=== PATIENT | male | born 1945 | race Caucasian/White ===

== ENCOUNTER 2016-07-04 11:24 | Inpatient (IN) | payer MEDICARE, OTHER ==
[~2016-07-04] VITALS: Ht 172.7 cm; Wt 76.6 kg
[~2016-07-04 11:24] MED LIST: COMPAZINE DPS5 MG PO; DECADRON-DPS4 MG PO; KEFLEX-DPS500 MG PO; LEVEMIR100 UNIT/1 PO; MIRALAX PACKET17 GM PO; NORMAL SALINE FL5 ML IV; OXY IR DPS5 MG PO; OXY-CONTIN10 MG PO; PEPCID DPS20 MG PO; SURFAK DPS240 MG PO; ZYLOPRIM-DPS300 MG PO
--- NOTE | 2016-07-08 09:47 | CO ---
ADMIT: 07/04/2016 RM/LOC: 423 [facility] MR#: [id number] 2620 [facility] [address] [place], [place] [address] GWENDOLYN NAVARRO [address] [place] [address] Consultation SEX: M AGE: 70 : 1945 DATE OF CONSULTATION: 07/04/2016 ATTENDING PHYSICIAN: Forest Wisdom CONSULTING PHYSICIAN: Corrie Cerda MD REASON FOR ONCOLOGY CONSULTATION: 1. Small-cell lung cancer. 2. Anemia secondary to chemotherapy. HISTORY OF PRESENT ILLNESS: Mr. Navarro is a 70-year-old pleasant gentleman with recent diagnosis of small-cell lung cancer, on chemotherapy. The patient is of my colleague Dr. Montalvo, who was admitted due to the fever, infection, post chemotherapy, subsequently found to have a pneumonia likely. His last chemotherapy was on June 23, 2016. He did receive 1 unit of blood transfusion on Monday, which is July 01, 2016. The patient did not feel well. He fell down when he was at home after tripping on the floor, he has injured his left arm, which is a little bit swollen and painful. He also had fever of 101. He is on antibiotic with Zosyn and vancomycin as well as Zithromax per MD. He feels tired and fatigued. He denies any nausea or vomiting. No shortness of breath. I have discussed with the patient about the need of monitoring the blood count as well as continuing the antibiotics and IV fluids. His total bilirubin actually is decreasing in trend and his jaundice is significantly improving. PAST MEDICAL HISTORY: 1. Small-cell lung cancer, on chemotherapy, carboplatin and etoposide. He has multiple metastases to the bones, lung, and liver. 2. Diabetes type 2 mellitus. 3. Hyperlipidemia. MEDICATIONS: He is on; 1. Lasix. 2. Levemir. 3. Prilosec. 4. MiraLax. 5. Oxycodone. Currently in the hospital he is on: 1. Zosyn. 2. Vancomycin. 3. Zithromax. ALLERGIES: NO KNOWN DRUG ALLERGIES. SOCIAL HISTORY: He is ex-smoker. Currently, he does not smoke or drink. No IV illicit drug use. FAMILY HISTORY: Father had heart disease and mother had breast cancer, and also breast cancer in his sister. ADMIT: 07/04/2016 RM/LOC: 423 [facility] MR#: [id number] [address] [address] GWENDOLYN NAVARRO [address] [place] [address] Consultation SEX: M AGE: 70 : 1945 REVIEW OF SYSTEMS: GENERAL: Not in acute distress. RESPIRATORY: No shortness of breath. CARDIOVASCULAR: No chest pain. GASTROINTESTINAL: No nausea, no vomiting. No diarrhea. ENDOCRINOLOGY: No polyuria or polydipsia. GENITOURINARY: No urgency. No frequency. NUTRITION: Adequate. INFECTION: Positive fever, likely infection. SKIN: No rashes. MUSCULOSKELETAL: No pain. PHYSICAL EXAMINATION: VITAL SIGNS: Temperature is 100.7, the maximum temperature was 101.6; pulse of 96; respirations 22, and blood pressure 130/62. HEENT: Normocephalic and atraumatic. LUNGS: Clear. HEART: S1 and S2 heard. Regular rate and rhythm. ABDOMEN: Soft, nontender, and nondistended. Positive bowel sounds. EXTREMITIES: No edema. NEUROLOGIC: Awake, alert, and oriented x3. No focal neurological deficit. SKIN: No rash. LYMPHATICS: No abnormal lymph nodes palpated. LABORATORY DATA: WBC is 18.8, hemoglobin 7.5, and platelet 195. His kidney function is normal and his total bilirubin was 2.6. IMPRESSION AND RECOMMENDATIONS: Mr. Navarro is a 70-year-old pleasant gentleman, a patient of my colleague, Dr. Montalvo, was admitted to the hospital because of the fever and sepsis. 1. Fever and sepsis. The patient on appropriate coverage with antibiotic, Zosyn, vancomycin, and Zithromax per MD. Continue antibiotics and supportive care as well as IV hydration. 2. Small-cell lung cancer, advanced stage, extensive. The patient is getting carboplatin and etoposide. Post chemotherapy, he may have developed the infection, on antibiotic. We will continue the treatment for now. His white blood cell count is little high. Probably also from Neulasta that he got postchemotherapy, but need to monitor very closely. 3. Severe anemia. His last blood transfusion was on Monday. We will monitor ADMIT: 07/04/2016 RM/LOC: 423 [facility] MR#: [id number] [address] [place] [phone] GWENDOLYN NAVARRO [address] [address] [place] [address] Consultation SEX: M AGE: 70 : 1945 his CBC tomorrow. If it is below 7 g, we will give him a unit of blood transfusion tomorrow. I will monitor the CBC very closely. I have reviewed the medical records very thoroughly and also discussed with the patient and his , they are very pleasant people. I have spent 55 minutes of my time in discussing with Keturah and his in detail about the Cancer and anemia, and the need of transfusion tomorrow if hemoglobin count falls below 7. The workup that needed and the antibiotic that he needs as well as other general issues. I have spent more than 50% of my time discussing that. Thank you so much for your consultation and the opportunity in taking care of your patient. Corrie Cerda MD/ don JOB #: [id number] CC: Forest Wisdom, Attending Physician Forest Wisdom, Family Physician
[2016-07-12] MEDS ORDERED: LASIX DPS40 MG PO (10:02)
[2016-07-12] MEDS ORDERED: QUESTRAN DPS4 GM PO (10:03)
[2016-07-12] MEDS ORDERED: DUONEB DPS3 ML IH (10:03)
[2016-07-12] MEDS ORDERED: ZITHROMAX500 MG PO (10:03)
[2016-07-12] MEDS ORDERED: DELTASONE DPS1 MG PO (10:04)
[2016-07-12] MEDS ORDERED: TYLENOL DPS325 MG PO (10:05)
[2016-07-12] MEDS ORDERED: AMOXICILLIN875 MG PO (10:05)
[2016-07-12] MEDS ORDERED: PRILOSEC DPS20 MG PO (10:06)
--- NOTE | 2016-07-17 09:17 | HP ---
ADMIT: 07/04/2016 RM/LOC: 423 [facility] MR#: [id number] 2620 [facility] [address] [place], [place] [address] GWENDOLYN NAVARRO [address] [address] History and Physical SEX: M AGE: 70 : 1945 DATE OF SERVICE: CHIEF COMPLAINT: Shortness of breath and cough. HISTORY OF PRESENT ILLNESS: This is a 70-year-old white male, with a small cell lung cancer, metastatic to lungs, bones, and liver presented with 2-day history of low-grade fevers, shortness of breath, cough productive for thick yellow sputum. No vomiting or diarrhea. He did fall today, just had his RASHARD hose on and he states it was slick, kind of stumbled injuring his left wrist which is quite swollen. He is scheduled to undergo another round of chemotherapy in about 10 days. Workup does reveal bilateral pulmonary nodules including the possibility of some infection here as well. Therefore, he is being admitted for further workup and stabilization. PAST MEDICAL HISTORY: Remarkable for the metastatic small cell lung cancer to bones, liver, and lungs. Also history of anemia, diabetes mellitus type 2, gastroesophageal reflux disease, ganglion cyst of his right wrist, hyperlipidemia, sciatica, spinal stenosis, and gout. CURRENT MEDICATIONS: Include: 1. Zyloprim. 2. Lasix. 3. Levemir. 4. Mylanta. 5. Prilosec. 6. MiraLax. 7. Oxycodone IR. 8. OxyContin. 9. Surfak. ALLERGIES: NONE. FAMILY HISTORY: Father with heart disease. Mother with breast cancer and diabetes. One sister with breast cancer. SOCIAL HISTORY: Stopped smoking over 30 years ago. Rare alcohol use. He is a mann. REVIEW OF SYSTEMS: GENERAL: Has had fevers. HEENT: No headaches, blurry vision, double vision. CARDIAC: No chest pains. PULMONARY: As per HPI. GI: No nausea, vomiting, or diarrhea. : No dysuria, urgency, frequency. ENDOCRINE: No polyuria, polydipsia. PSYCH: No depression. INTEGUMENTARY: No new rashes. PHYSICAL EXAMINATION: VITAL SIGNS: Blood pressure is 118/60, pulse 111, ADMIT: 07/04/2016 RM/LOC: 423 [facility] MR#: [id number] [address] [address] GWENDOLYN NAVARRO [address] [place] [address] History and Physical SEX: M AGE: 70 : 1945 respirations 20, temp is 100.8, and O2 saturation is 87% on room air. GENERAL: He is in no acute distress. He is alert and oriented. Pupils are reactive. Conjunctivae clear. NECK: Soft and supple. LUNGS: With crackles on both bases, worse on the left than the right. Decreased air movement. HEART: Regular rate and rhythm. ABDOMEN: Soft and nontender. EXTREMITIES: No cyanosis, no clubbing. There is no edema. SKIN: Mild jaundice, much improved from previous hospitalization. DIAGNOSTIC DATA: Chest x-ray reveals bilateral pulmonary nodules including the possibility of infiltrates. ASSESSMENT: 1. Pneumonia, likely postobstructive. 2. Metastatic small cell lung cancer. 3. Diabetes mellitus type 2. 4. Acute hypoxic respiratory failure. 5. Anemia. PLAN: We will check blood count. We will do a CTA of his chest just to rule out PE. Plan on getting Oncology on board and change treatment as hospital course dictates. Forest Wisdom MD/ don JOB #: [id number] CC: Forest Wisdom, Attending Physician Forest Wisdom, Family Physician
--- NOTE | 2016-07-29 08:44 | CO ---
ADMIT: 07/04/2016 RM/LOC: 423 [facility] MR#: [id number] ACC#: [id number] 2620 [facility] [address] [place], [place] [address] GWENDOLYN NAVARRO [address] [place] [address] Consultation SEX: M AGE: 70 : 1945 DATE OF CONSULTATION: 07/06/2016 ATTENDING PHYSICIAN: Forest Wisdom CONSULTING PHYSICIAN: Elizabeth Machado MD REASON FOR CONSULTATION: Pneumonia. HISTORY OF PRESENT ILLNESS: The patient was admitted on 07/04 with a cough, fever, sputum production, and pulmonary infiltrates. His past medical history significant for recent diagnosis of small cell lung cancer, and he has mets to his lungs, bones, and liver, 2-day history of low-grade fevers, cough, yellow green sputum. Recently, he had chemotherapy, and was scheduled to have another round of chemotherapy in about 10 days. Currently, he is being treated with oxygen for dyspnea and hypoxemia. Multiple antibiotics to cover for healthcare-associated pneumonia including Zosyn, vancomycin, and Zithromax. He is mildly improved, but cough is still productive. A sputum culture has been obtained. There is no chest pain. He is a remote smoker having quit about 15 years ago, and denies COPD. PAST MEDICAL HISTORY: Includes: 1. Metastatic small-cell. 2. Anemia. 3. Diabetes mellitus. 4. Gastroesophageal reflux. 5. Spinal stenosis. 6. Gout. 7. Right wrist ganglion cyst. 8. Hyperlipidemia. 9. Sciatica. MEDICATIONS: At home were: 1. Zyloprim. 2. Lasix. 3. Levemir. 4. Mylanta. 5. Prilosec. 6. MiraLax. 7. Oxycodone. 8. OxyContin. 9. Surfak. ALLERGIES: NONE. FAMILY HISTORY: Reviewed. SOCIAL HISTORY: Reviewed. REVIEW OF SYSTEMS: Negative except for the HPI, a 12-point review of systems. ADMIT: 07/04/2016 RM/LOC: 423 [facility] MR#: [id number] 2620 [facility] [address] [place] [phone] GWENDOLYN NAVARRO [address] [place] [address] Consultation SEX: M AGE: 70 : 1945 PHYSICAL EXAMINATION: VITAL SIGNS: Currently, temp 98, pulse 80, respirations 12, blood pressure 130/70. HEENT: Within normal limits. NECK: No JVD or bruits. HEART: Regular rate. LUNGS: Bilateral rales and rhonchi, right greater than left. ABDOMEN: Soft. EXTREMITIES: No edema. EXTREMITIES: No cyanosis, clubbing, or edema. GENITORECTAL: Deferred. LABORATORY TESTING: CT scan of the chest on admission per PE protocol, bilateral large parenchymal opacities, right greater than left. No pulmonary emboli. Lactic acid yesterday was normal. CMP was within normal limits except for mildly elevated bilirubin at 2.6, calcium of 7.0. CBC shows a white count 19,600, hemoglobin 6.9, and platelets were 213. Today's white blood cell count is 21,000, hemoglobin 8.3 after blood, and platelets 308. Basic metabolic panel today was within normal limits except for a low calcium at 7.1. Chest x-ray, shows persistent bilateral pulmonary consolidation. IMPRESSION: 1. Severe healthcare-associated pneumonia. Clinically, he is improving with decreased cough, shortness of breath, and wheeze; however, radiographically, he is looking worse. Cultures are pending and so far negative to date. We will continue current medication regimen. These include vancomycin, Zithromax, Zosyn, and neb treatments. I am going to add Solu-Medrol with his remote smoking history, but probable COPD twice daily 40 mg. 2. He has small-cell lung cancer with metastasis, recent chemotherapy, Heme/Onc is following. 3. Anemia, which is improved with transfusion, most likely secondary to bone marrow effect from chemotherapy. 4. He has hypoxemia which is relatively low flow and stable. Thank you for having me see him. We will continue current treatment regimen. We will follow along with you. Elizabeth Machado MD/ don JOB #: [id number] CC: Forest Wisdom, Attending Physician Forest Wisdom, Family Physician
[2016-09-09] MEDS ORDERED: MORPHINE SULFAT45 MG PO (08:17)
[2016-09-09] MEDS ORDERED: MAALOX DPS30 ML PO (08:18)
--- NOTE | 2016-09-10 15:50 | DS ---
ADMIT: 07/04/2016 RM/LOC: 423 [facility] MR#: [id number] 2620 [facility] [address] [place] [phone] GWENDOLYN NAVARRO [address] [place] [address] Discharge Summary SEX: M AGE: 70 : 1945 ADMISSION DATE: 07/04/2016 DISCHARGE DATE: 07/11/2016 FINAL DIAGNOSES: 1. Metastatic small cell lung cancer. 2. Left wrist contusion. 3. Diabetes mellitus type 2. 4. Acute hypoxic respiratory failure. 5. Anemia. 6. Bilateral pneumonia. 7. Sepsis. REASON FOR ADMISSION: Truman is a 70-year-old white male well known to me, who has known metastatic small cell lung cancer, who developed cough and fever over the weekend, thick yellow sputum. He fell, and in the morning of admission complaining of left wrist pain. Sats in the office were 82%. Therefore, he is admitted for further workup and stabilization. HOSPITAL COURSE: He was admitted on 07/04/2016. Left wrist x-ray was negative for any obvious fracture or dislocation. He was rehydrated with IV normal saline. No DuoNeb treatments. Started on IV Zosyn, IV Vanco. PT and OT were ordered. We did let Dr. Montalvo know of the admission. Sliding scale insulin was used for tighter blood sugar control. Zithromax was also used to broaden antibiotic coverage. On 07/04 we reassessed his peripheral perfusion. He had good capillary refill. Had a mild increase in his lactic acid. His left wrist was placed in a cock-up splint. On 07/05 had an okay night with a lot of wrist pain. Decreased his IV fluids down to 50 mL/h. His hemoglobin was down to 6.9. Oncology did go ahead and transfuse 1 unit of packed red blood cells. Vanco dosing was adjusted per pharmacy. 07/06 he did have a little bit of hypoglycemia through the night so we did lower his Levemir to 10 units b.i.d. Pulmonology was consulted. They got him up, ambulated him t.i.d. They recommended starting Solu-Medrol. On 07/07 he was feeling better, still occasional cough. Sugars were running quite high after the steroids, so we did increase his Levemir back to 15 units subcu b.i.d. We saline locked his IV. His Zithromax was changed to p.o. PT and OT continued to work with the patient. He was placed on enoxaparin for DVT prophylaxis. On 07/08 he had a good night. He was feeling better. He was just a little bit volume overloaded so we did do a dose of IV Lasix. We discontinued his Solu-Medrol and placed him on prednisone. On 07/09 he remained afebrile. We discontinued his tele status. The vanco was discontinued. 07/10 he was afebrile, was doing well. 07/11 good night. He was off his O2. He was feeling better, and he was felt stable for discharge. DISCHARGE INSTRUCTIONS: 1. MiraLAX 17 g b.i.d. and p.r.n. 2. OxyContin 20 mg b.i.d. 3. Omeprazole 20 mg b.i.d. 4. Zithromax 500 mg daily for 3 more days. 5. Zyloprim 300 mg daily. ADMIT: 07/04/2016 RM/LOC: 423 [facility] MR#: [id number] [address] [address] GWENDOLYN NAVARRO [address] [place] [address] Discharge Summary SEX: M AGE: 70 : 1945 6. DuoNeb treatment t.i.d. 7. Levemir 10 units subcu at bedtime. 8. Compazine 10 mg q.4 hours p.r.n. 9. Oxy IR 5 mg q.4 hours p.r.n. 10.Questran 4 mg b.i.d. p.r.n. 11.Tylenol 325 mg 2 tabs q.4 hours p.r.n. 12.Decadron 8 mg b.i.d. take on days 4 and 5 of chemo. 13.Prochlorperazine 10 mg q.4 hours p.r.n. 14.Surfak 240 mg b.i.d. p.r.n. 15.Lasix 40 mg daily. 16.Prednisone 10 mg 2 tabs p.o. daily for 3 days, then 1 p.o. daily for 3 days, then 1/2 tab p.o. daily x3 days, then off. 17.Augmentin 875 mg p.o. b.i.d. for 3 days. Follow up with Dr. Wisdom in 4-5 days. Follow up with Dr. Montalvo per his wishes. Overall discharge took greater than 30 minutes for this patient. Forest Wisdom MD/ harriet JOB #: [id number] CC: Forest Wisdom MD, Attending Physician Forest Wisdom MD, Family Physician
[2016-09-17] MEDS ORDERED: TYLENOL DPS325 MG PO (10:42)
[2016-11-11] MEDS ORDERED: MORPHINE SULFAT60 M1 PO (14:05)
[2016-11-11] MEDS ORDERED: SURFAK DPS240 MG PO (14:06)
[2016-11-11] MEDS ORDERED: LASIX DPS80 MG PO (14:06)
[2016-11-11] MEDS ORDERED: KLOR-CON M2020 ME1 PO (14:07)
[2016-11-11] MEDS ORDERED: SENNA S TABLET1 EACH PO (14:07)
== END 2016-07-11 12:10 | disposition home health service (06) | DRG 871 ==
LOC: 4PCU 11:24
PROVIDERS: ADMIT Family Medicine
PROC: 30233N1 Transfusion of Nonautologous Red Blood Cells into Peripheral Vein, Percutaneous Approach (ICD-10-PCS; principal; 2016-07-05)
DX: A41.9 Sepsis, unspecified organism (principal); J18.9 Pneumonia, unspecified organism; J96.01 Acute respiratory failure with hypoxia; C78.7 Secondary malignant neoplasm of liver and intrahepatic bile duct; C34.90 Malignant neoplasm of unspecified part of unspecified bronchus or lung; C79.51 Secondary malignant neoplasm of bone; K83.1 Obstruction of bile duct; W19.XXXA Unspecified fall, initial encounter; S60.212A Contusion of left wrist, initial encounter; D64.81 Anemia due to antineoplastic chemotherapy; E11.9 Type 2 diabetes mellitus without complications; K21.9 Gastro-esophageal reflux disease without esophagitis; E78.5 Hyperlipidemia, unspecified; M54.30 Sciatica, unspecified side; M48.00 Spinal stenosis, site unspecified; Z87.891 Personal history of nicotine dependence

== ENCOUNTER 2016-08-03 19:48 | Emergency (ER) | payer MEDICARE, OTHER ==
[~2016-08-03 19:48] MED LIST changes: +AMOXICILLIN875 MG PO; +DELTASONE DPS1 MG PO; +DUONEB DPS3 ML IH; +LASIX DPS40 MG PO; +PRILOSEC DPS20 MG PO; +QUESTRAN DPS4 GM PO; +TYLENOL DPS325 MG PO; +ZITHROMAX500 MG PO
--- NOTE | 2016-08-04 05:33 | ER ---
ADMIT: 08/03/2016 RM/LOC: ER [facility] MR#: [id number] 2620 [facility] [address] [place], [place] [address] GWENDOLYN NAVARRO [address] [place] [address] Emergency Room Report SEX: M AGE: 71 : 1945 DATE: 08/03/2016 HISTORY OF PRESENT ILLNESS: The patient is a 71-year-old male with a past medical history of lung cancer, on chemo and metastasis to liver and spine allegedly, last chemo was 2 weeks ago, who came to the ER with chief complaint of not feeling well and feeling like he was hit on a chest. The patient states there is minimal vague chest pain, and he was worried that it could be because of pneumonia because he was recently diagnosed with pneumonia and was treated for that with the completion of the treatment. The patient denies any fever, cough, or sputum at home. The patient denies any palpitation too. In the ER, the patient was in no obvious pain or distress, vitals were stable. EKG did not show any ST or T changes or arrhythmia. Cardiac enzymes are negative. Chest x-ray did not show any infiltration or pathologies. LABORATORY DATA: Lab work showed WBC of 8.3 with hemoglobin of 8.6 and platelet of 214,000. The patient had previous hemoglobin in the range of 8 to 10. Glucose level was 261. The patient was observed, did not develop any new symptoms, was re-examined and examination was benign. The patient is not septic. Absolute neutrophil count is 6000. The patient is in no pain or distress and states the chest discomfort has been resolved and he was just worried that it could be a relapse of the pneumonia. The patient is stable to be discharged to home and follow up with the primary doctor as needed. Luis Manuel Sosa MD/ don JOB #: [id number] CC: Luis Manuel Sosa MD, Attending Physician Forest Wisdom MD, Family Physician
[2016-09-09] MEDS ORDERED: MORPHINE SULFAT45 MG PO (08:17)
[2016-09-09] MEDS ORDERED: MAALOX DPS30 ML PO (08:18)
[2016-09-17] MEDS ORDERED: TYLENOL DPS325 MG PO (10:42)
[2016-11-11] MEDS ORDERED: MORPHINE SULFAT60 M1 PO (14:05)
[2016-11-11] MEDS ORDERED: SURFAK DPS240 MG PO (14:06)
[2016-11-11] MEDS ORDERED: LASIX DPS80 MG PO (14:06)
[2016-11-11] MEDS ORDERED: KLOR-CON M2020 ME1 PO (14:07)
[2016-11-11] MEDS ORDERED: SENNA S TABLET1 EACH PO (14:07)
== END 2016-08-03 23:15 | disposition home or self-care (01) ==
LOC: ER 19:48
DX: R07.9 Chest pain, unspecified (principal); Z85.118 Personal history of other malignant neoplasm of bronchus and lung; Z79.899 Other long term (current) drug therapy

== ENCOUNTER 2016-09-06 11:36 | Observation (INO) | payer MEDICARE, OTHER ==
[~2016-09-06] VITALS: Ht 170.2 cm; Wt 72.0 kg
--- NOTE | ~2016-09-06 | ECH ---
Transthoracic Echocardiography Report (TTE) Demographics Patient Name GWENDOLYN NAVARRO Date of Study 09/07/2016 Patient Number [id number] Visit Number [id number] Date of 1945 Room Number 633 Accession Number [id number] Gender Male Age 71 year(s) Referring Artis Garg MD Metal Casket Assembler Elise Sood Physician RDCS Physician Interpreting Robert [employer] Mill Tender Warm Up Physician Baljeet Supervising Ordering Physician Artis Garg MD, MD/MLP Nurse Stress Perinatal Educator Conclusions Contractility Score Summary Normal Left Ventricular contractility was noted. Summary Technically adequate exam. The estimated left ventricular ejection fraction is 60-65%. Diastolic assessment reveals Grade I diastolic dysfunction. No significant valvular abnormalities. Recommendation The patient will be given the results of this study by the physician who ordered the exam. Procedure Type of Study TTE procedure:Echo Complete SF. Procedure Date Date: 09/07/2016 Start: :17 Technical Quality: Adequate visualization Indications:Atypical Chest Pain and Diabetes. Appropriate Use Criteria: 9 Height: 67 inches Weight: 158 pounds BSA: 1.83 m Rhythm: Irregular HR: 91 bpm BP: 120/78 mmHg M-Mode/2D Measurements LV Diastolic Dimension: 5.11 cm LV Systolic Dimension: 3.41 cm LV Septum Diastolic: 1.01 cm LV PW Diastolic: 0.97 cm AO Root Dimension: 2.96 cm Cardiac Output: 8 l/min LA Dimension: 3.93 cm Cardiac Index: 4.37 l/min*m RV Diastolic Dimension: 3.54 cm LA volume index: 32 ml/m LVOT: 2.09 cm LVOT VTI: 25.64 cm RV Base: 3.6 cm LV Stroke volume: 87.92 ml RV Mid: 2.3 cm LV Stroke volume index: 48.04 ml/m TAPSE: 2.8 cm TDI-S': 15 cm/s Doppler Measurements AV Peak Velocity: 1.5 m/s MV Peak E-Wave: 0.83 m/s AV Peak Gradient: 9 mmHg MV Peak A-Wave: 0.93 m/s AV Mean Gradient: 4.62 mmHg MV E/A Ratio: 0.89 LVOT Peak Velocity: 1.22 m/s MV P1/2t: 66.1 msec AV Area (Continuity):3.46 cm MV Deceleration Time: 215.5 msec TR Velocity:2.79 m/s MV Area (PHT): 3.33 cm TR Gradient:31.14 mmHg PV Peak Velocity: 1.21 m/s Estimated RAP:3 mmHg PV Peak Gradient: 5.86 mmHg Estimated RVSP: 34 mmHg Estimated PASP: 34.14 mmHg E' Septal Velocity: 0.08 m/s A' Septal Velocity: 0.11 m/s E' Lateral Velocity: 0.13 m/s A' Lateral Velocity: 0.16 m/s RA Area: 16.79 cm Findings Left Ventricle Normal left ventricle size and function. Diastolic assessment reveals Grade I diastolic dysfunction. Right Ventricle Normal right ventricle structure and function. Left Atrium Normal left atrial size. Right Atrium Normal right atrial size. Mitral Valve Normal mitral valve structure and function. Trivial mitral regurgitation by color Doppler. Aortic Valve Normal aortic valve structure and function. Tricuspid Valve Normal tricuspid valve structure and function. Mild tricuspid regurgitation by color Doppler. Normal pulmonary pressures. Pulmonic Valve Normal pulmonic valve structure and function. Trivial pulmonic valve regurgitation by color Doppler. Pericardial Effusion No evidence of pericardial effusion. Miscellaneous Visualized portions of the aortic root and ascending aorta appear normal in size. Pleural Effusion No evidence of pleural effusion. Contractility Score LV regional wall motion:(0-Non visualized 1-Normal 2-Hypokinesis 3-Akinesis 4-Dyskinesis 5-Aneurysm) Signature
[2016-09-09] MEDS ORDERED: MORPHINE SULFAT45 MG PO (08:17)
[2016-09-09] MEDS ORDERED: MAALOX DPS30 ML PO (08:18)
--- NOTE | 2016-09-09 09:05 | ER ---
ADMIT: 09/06/2016 RM/LOC: 633 [facility] MR#: [id number] 2620 [facility] [address] [place] [phone] ANDERSGWENDOLYN AHUJA [address] [place] [address] Emergency Room Report SEX: M AGE: 71 : 1945 DATE: 09/06/2016 TIME: 1136 hours. Please refer to my T-sheet for complete H and P. Briefly, the patient is a 71-year-old who comes in with chest pain, substernal, rates it moderate. He was walking his dog this morning, doing okay. When made it come on, he is short of breath. Tried Maalox 3 times and no improvement. He has a history of lung cancer status post metastatic disease, currently on chemotherapy. Also has a port. PHYSICAL EXAMINATION: VITAL SIGNS: Blood pressure 119/57, pulse 81, respirations 14, temp 98.6, sat 99%. GENERAL: He is in no acute distress. HEENT: Grossly normal. LUNGS: Clear. HEART: Regular. ABDOMEN: Soft. SKIN: No rash. NEUROLOGIC: Alert and oriented. Nonfocal. EMERGENCY DEPARTMENT COURSE: He was given aspirin by paramedics and nitroglycerin and his pain was resolved. His EKG here was sinus rhythm, rate 82, no changes. CBC normal except white count 13.7, hemoglobin 9.8. Chemistries all normal except BUN 30, glucose 212. Troponin negative. Alkaline phosphatase was 270. I had a long discussion with him. I talked to Dr. Wisdom, who will admit to the hospital. ASSESSMENT: 1. Atypical chest pain, pain free with negative troponin. 2. Anemia. 3. Metastatic disease. PLAN: Admit to the hospital. Isai Block MD/ don JOB #: [id number] CC: Forest Wisdom MD, Attending Physician Forest Wisdom MD, Family Physician
--- NOTE | 2016-09-10 15:50 | HP ---
ADMIT: 09/06/2016 RM/LOC: 633 [facility] MR#: [id number] 2620 [facility] [address] [place], [place] [address] GWENDOLYN NAVARRO Ghazal [address] [place] [address] History and Physical SEX: M AGE: 71 : 1945 DATE OF SERVICE: CHIEF COMPLAINT: Chest pain. HISTORY OF PRESENT ILLNESS: This is a very pleasant, 71-year-old white male with known metastatic lung cancer, who had a sudden onset of substernal chest pain about 10:30 a.m. this morning. He ate breakfast at about 9 o'clock and then about 10:30 a.m., developed severe substernal chest pain which he describes as "it felt like someone is sticking knives in his chest." He has had heartburn and reflux symptoms in the past. He states it was similar to that, but just much more intense than normal. Usually, his heartburn is "relieved with a shot of Mylanta." He tried 3 different doses of Mylanta and then took a tube of Rolaids, but the pain did not resolve, so he came to the emergency room. By the time he got to the emergency room, his pain had pretty much resolved at that point and now he is chest pain-free. Workup did reveal negative cardiac enzymes. He also had a CTA which was negative for pulmonary emboli, but it did show increasing size of his pulmonary and his hepatic metastasis. He is therefore being admitted for workup and rule out [place]. PAST MEDICAL HISTORY: 1. 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 2. Anemia. 3. Diabetes mellitus type 2. 4. Gastroesophageal reflux disease. 5. Hyperlipidemia. 6. Sciatica. 7. Spinal stenosis. 8. Gout. PAST SURGICAL HISTORY: Include: 1. Ganglion cyst, right wrist. 2. Bilateral knee surgery. 3. Bilateral shoulder surgery. CURRENT MEDICATIONS: Include: 1. Decadron 8 mg on day #4 and #5 of chemo. 2. Pepcid 20 mg b.i.d. 3. MiraLax daily. 4. Morphine 45 mg b.i.d. 5. Oxy IR 10 mg q.4 hours p.r.n. 6. Zyloprim 300 mg daily as needed. 7. Compazine 10 mg p.r.n. 8. Levemir 10 units at bedtime. 9. DuoNeb b.i.d. p.r.n. ALLERGIES: NONE. FAMILY HISTORY: Father with heart disease. Mother with breast cancer and ADMIT: 09/06/2016 RM/LOC: 633 [facility] MR#: [id number] [address] [address] GWENDOLYN NAVARRO [address] [place] [address] History and Physical SEX: M AGE: 71 : 1945 diabetes. Sister with breast cancer. SOCIAL HISTORY: Quit smoking over 30 years ago. Rare alcohol use. He is a mann. REVIEW OF SYSTEMS: GENERAL: No fevers or chills. HEENT: No headaches, blurry vision, or double vision. CARDIAC: As per HPI. PULMONARY: No shortness of breath. GI: No nausea, vomiting, or diarrhea. : No dysuria, urgency, or frequency. ENDOCRINE: No polyuria or polydipsia. PSYCH: No depression. INTEGUMENTARY: No new rashes. All others are negative. PHYSICAL EXAMINATION: VITAL SIGNS: Blood pressure is 117/74, pulse 72, respirations 18, temperature 92. GENERAL: In no acute distress. He is alert, interactive, and oriented. HEENT: Pupils are reactive. Conjunctivae clear. NECK: Soft and supple. LUNGS: Clear to auscultation with a normal respiratory effort. HEART: Regular rate and rhythm. ABDOMEN: Soft. It is nontender. EXTREMITIES: No cyanosis. No clubbing. There is no edema. SKIN: No rashes. NEUROLOGIC: Cranial nerves II through XII are grossly intact. No focal deficits. LAB/X-RAY DATA: EKG showed no acute changes. Sodium 139, potassium 4.6, chloride 102, CO2 of 29, BUN 30, creatinine 0.8, glucose 212, calcium 8.9, total bilirubin is 0.4, total protein 6.2, albumin 3.2, alk phosphatase 270, AST 22, ALT 40. Troponin I is less than 0.015. White count 13,700, hemoglobin 9.8, platelets 338,000. IMAGING: CTA of his chest was read out as interval progression of known pulmonary and hepatic metastatic disease, significant improvement of bilateral inflammatory processes and no suspicious findings to suggest pulmonary embolism. ASSESSMENT: 1. Atypical chest pain. 2. Metastatic small cell lung cancer. ADMIT: 09/06/2016 RM/LOC: 633 [facility] MR#: [id number] [address] [address] GWENDOLYN NAVARRO [address] [place] [address] History and Physical SEX: M AGE: 71 : 1945 3. Diabetes mellitus type 2. 4. Gastroesophageal reflux disease. 5. Left hip pain. PLAN: We will put him on p.o. morphine for pain control. We will check echocardiogram. Check fasting lipids in the a.m. as well as repeat EKG. We will discontinue the Pepcid and try and put pantoprazole. Obviously, concerning about his increasing size of his metastatic disease, we will get Dr. Montalvo to weigh in. He is supposed to have one more session of chemo next week, but also may need to change regimens. We will see if there has been any imaging of his left hip. If not, may need to proceed as that would obviously be concerning for metastatic disease as well. Forest Wisdom MD/ don JOB #: [id number] CC: Forest Wisdom, Attending Physician Forest Wisdom, Family Physician
[2016-09-17] MEDS ORDERED: TYLENOL DPS325 MG PO (10:42)
--- NOTE | 2016-09-28 08:15 | CO ---
ADMIT: 09/06/2016 RM/LOC: 633 [facility] MR#: [id number] 2620 [facility] [address] [place], [place] [address] GWENDOLYN NAVARRO [address] [place] [address] Consultation SEX: M AGE: 71 : 1945 DATE OF CONSULTATION: 09/06/2016 ATTENDING PHYSICIAN: Forest Wisdom MD CONSULTING PHYSICIAN: Nils Montalvo MD REASON FOR CONSULTATION: Chest pain and metastatic small cell cancer. 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 He was diagnosed when he presented with obstructive jaundice, markedly elevated bilirubin, and CT scan demonstrated a near complete replacement of his liver with metastatic disease. His biopsy showed small cell carcinoma of lung primary. We began treatment with carbo, etoposide and he has now completed 5 cycles with significant improvement in his overall functional status, abdominal pain, and normalization of his bilirubin. Unfortunately we just obtained CT scans last week for restaging that suggested disease has really not improved and even in some places gotten a bit worse with his chemotherapy regimen. This has been quite surprising given his overall significant functional improvement. He now presents to the hospital with chest pain and a repeat CT scan of the chest again demonstrates some growth of his lung nodules suggesting mild progressive disease. These findings are basically the same as his scan last week which we talked about extensively with his family. Of note, the patient did receive his last chemotherapy which was cycle 5 of carbo and etoposide on 08/30/2016, followed by a dose of Neulasta. His chest pain is a bit unusual in its characteristics. I think it could be related to his Neulasta, causing some sternal bone pain. He denies any fevers. He has had no nausea or significant dyspnea. He has not noticed any skin color changes. PAST MEDICAL HISTORY: Hypertension, diabetes, chronic anemia, hyperlipidemia, gout, spinal stenosis, metastatic small cell lung cancer. MEDICATIONS AND ALLERGIES: Reviewed in his chart. SOCIAL HISTORY: The patient is . He has an extremely supportive family. He is a retired mann. He quit smoking many years ago. FAMILY HISTORY: He is not aware of any recurrent hereditary malignancies in the family. REVIEW OF SYSTEMS: See HPI. Review of systems otherwise negative. PHYSICAL EXAMINATION: VITAL SIGNS: Temp 98, pulse 72, respirations 18, blood pressure 117/74. GENERAL: He is no acute distress. He provides me good history. He is alert and oriented. HEENT: Mucous membranes are moist. No oral lesions are seen. Extraocular muscles are intact. Pupils are reacting and symmetrical. ADMIT: 09/06/2016 RM/LOC: 633 [facility] MR#: [id number] [address] [address] GWENDOLYN NAVARRO [address] [place] [address] Consultation SEX: M AGE: 71 : 1945 NECK: Without adenopathy or JVD. HEART: Regular rate and rhythm without murmur. LUNGS: Clear to auscultation bilaterally without any crackles or wheezes. ABDOMEN: Soft, nontender, and nondistended with positive bowel sounds throughout. No organomegaly is appreciated. EXTREMITIES: No edema, rashes, lesions or adenopathy is appreciated. LABORATORY DATA: White count 13.7, hemoglobin 9.8, and platelets 338. Bilirubin 0.4. Metabolic panel is normal. CT scan was reviewed. IMPRESSION: 1. Metastatic small cell carcinoma of the lung with extensive liver involvement with perhaps early progression. 2. Chest pain, atypical, likely in part related to his Neulasta causing sternal bone pain. RECOMMENDATIONS: I talked with the patient at length about his CT scans again today. These are essentially unchanged from last week. We have talked in clinic about a plan and basically with his remarkable improvement in his overall functional status and his labs. I decided to proceed with his 5th cycle. I think we would like to obtain [facility] testing on his tumor. I have also contemplated repeating his biopsy to just confirm again that this is all the same histology. It is a bit unusual for him to not see an improvement in his disease with carbo and etoposide which typically results in fairly dramatic shrinkage of tumors. I will plan to have with close followup in clinic with him. I also think he needs some radiation to his lower spine where we just had identified some active bony metastases from his cancer that is causing him some increasing pain. We will make these arrangements. I appreciate this consultation. Nils Montalvo MD/ don JOB #: [id number] CC: Forest Wisdom MD, Attending Physician Forest Wisdom MD, Family Physician
[2016-11-11] MEDS ORDERED: MORPHINE SULFAT60 M1 PO (14:05)
[2016-11-11] MEDS ORDERED: LASIX DPS80 MG PO (14:06)
[2016-11-11] MEDS ORDERED: SURFAK DPS240 MG PO (14:06)
[2016-11-11] MEDS ORDERED: KLOR-CON M2020 ME1 PO (14:07)
[2016-11-11] MEDS ORDERED: SENNA S TABLET1 EACH PO (14:07)
== END 2016-09-07 11:50 | disposition home or self-care (01) ==
LOC: ER 11:36 → 6PED 13:16
PROVIDERS: ADMIT Family Medicine
DX: R07.89 Other chest pain (principal); C34.90 Malignant neoplasm of unspecified part of unspecified bronchus or lung; E11.9 Type 2 diabetes mellitus without complications; D64.9 Anemia, unspecified; K21.9 Gastro-esophageal reflux disease without esophagitis; M25.552 Pain in left hip; E78.5 Hyperlipidemia, unspecified; M10.9 Gout, unspecified; M54.30 Sciatica, unspecified side; M48.00 Spinal stenosis, site unspecified; Z98.890 Other specified postprocedural states; Z79.899 Other long term (current) drug therapy

== ENCOUNTER 2016-09-15 07:12 | Day surgery (SDC) | payer MEDICARE, OTHER ==
[~2016-09-15] VITALS: Ht 170.2 cm; Wt 72.7 kg
[~2016-09-15 07:12] MED LIST changes: +MAALOX DPS30 ML PO; +MORPHINE SULFAT45 MG PO
[2016-09-17] MEDS ORDERED: TYLENOL DPS325 MG PO (10:42)
[2016-11-11] MEDS ORDERED: MORPHINE SULFAT60 M1 PO (14:05)
[2016-11-11] MEDS ORDERED: SURFAK DPS240 MG PO (14:06)
[2016-11-11] MEDS ORDERED: LASIX DPS80 MG PO (14:06)
[2016-11-11] MEDS ORDERED: KLOR-CON M2020 ME1 PO (14:07)
[2016-11-11] MEDS ORDERED: SENNA S TABLET1 EACH PO (14:07)
== END 2016-09-15 11:33 | disposition home or self-care (01) ==
LOC: RAD.S 07:12 → EDSTATUS 09:00 → RAD.S 11:33
PROC: 0FB23ZX Excision of Left Lobe Liver, Percutaneous Approach, Diagnostic (ICD-10-PCS; principal; 2016-09-15)
DX: C78.7 Secondary malignant neoplasm of liver and intrahepatic bile duct (principal); Z85.118 Personal history of other malignant neoplasm of bronchus and lung

== ENCOUNTER 2016-09-15 14:19 | Observation (INO) | payer MEDICARE, OTHER ==
[~2016-09-15] VITALS: Ht 170.2 cm; Wt 71.9 kg
[2016-09-17] MEDS ORDERED: TYLENOL DPS325 MG PO (10:42)
--- NOTE | 2016-10-02 07:29 | HP ---
ADMIT: 09/15/2016 RM/LOC: 412 [facility] MR#: [id number] 2620 [facility] [address] [place], [place] [address] GWENDOLYN NAVARRO Ghazal [address] [place] [address] History and Physical SEX: M AGE: 71 : 1945 DATE OF SERVICE: 09/15/2016 CHIEF COMPLAINT: Chest pain. HISTORY OF PRESENT ILLNESS: This is a pleasant 71-year-old white male who was recently admitted for OPO and rule out GA on September 06 that he ruled out. He had an echocardiogram, which really did not show anything significant, was pain free, and felt that we could finish evaluation as an outpatient. His symptoms seem somewhat GI related, but also, at that time, had gotten some Neulasta. Dr. Montalvo thought that certainly could be contributing as well. At any rate, he did fine up until 09/12, when he developed some more substernal chest pain that was somewhat pleuritic kind and right-sided, up into his right shoulder and his left shoulder, and it worsened. I saw him on 09/13 in the office. He was tearful in severe pain that was sharp, but yet substernal. He did take two OxyIR on his way into the clinic, and then we gave him 4 baby aspirin and nitroglycerin. After the nitroglycerin, his pain improved significantly, maybe just a little dullness in his ache in his left shoulder at that point. We did at that point call [facility]. He is scheduled for stress test, but they could not get him in until the first part of September. He went to radiation therapy today for his metastatic lung cancer, and when he was down in radiation, he once again was complaining of this chest pain, not quite as severe on Monday. It was substernal and kind up into his left shoulder. Therefore, we did repeat an EKG in the office, which did show again his right bundle branch block, but no other specific ST changes, but because of his ongoing chest pain and the fact we could not get a stress test done in the near future, I have placed him back OPO for repeat of a CTA and enzymes. We will have BRIDGETTE see and hope so we can get him evaluation sooner. PAST MEDICAL HISTORY: 1. 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 2. Chronic anemia. 3. Diabetes mellitus type 2. 4. Gastroesophageal reflux disease. 5. Hyperlipidemia. 6. Spinal stenosis. 7. Gout. 8. Sciatica. PAST SURGICAL HISTORY: Include a ganglion cyst removal of right wrist, bilateral knee surgery, bilateral shoulder surgery, and did undergo a liver biopsy this morning. CURRENT MEDICATIONS: Include: 1. Nitroglycerin p.r.n. 2. Compazine 5 mg two tabs q.6 hours p.r.n. 3. Maalox q.6 hours p.r.n. 4. Morphine sulfate extended release 45 mg b.i.d. 5. Zyloprim 300 mg p.r.n. 6. MiraLax b.i.d. and as needed. ADMIT: 09/15/2016 RM/LOC: 412 [facility] MR#: [id number] [address] [place] [address] GWENDOLYN NAVARRO [address] [place] [address] History and Physical SEX: M AGE: 71 : 1945 7. DuoNeb treatment t.i.d. p.r.n. 8. Levemir 10 units subcutaneous b.i.d. 9. Omeprazole 20 mg b.i.d. 10.Tylenol p.r.n. 11.OxyIR 5 mg q.4 hours p.r.n. ALLERGIES: NONE. FAMILY HISTORY: Father with heart disease. Mother with breast cancer and diabetes. One sister with breast cancer. SOCIAL HISTORY: Quit smoking over 30 years ago. Rare alcohol use. He is a mann. REVIEW OF SYSTEMS: GENERAL: No fevers or chills. HEENT: No headaches, blurry vision, or double vision. CARDIAC: As per HPI. PULMONARY: No shortness of breath. GASTROINTESTINAL: No nausea, vomiting, diarrhea, or constipation. GENITOURINARY: No dysuria, urgency, or frequency. ENDOCRINE: No polyuria or polydipsia. PSYCHIATRIC: No depression. INTEGUMENTARY: No new rashes. All others are negative. PHYSICAL EXAMINATION: VITAL SIGNS: Blood pressure 132/80, pulse 80, respirations 18, and temperature 99.5. GENERAL: No acute distress. Alert, interactive, and oriented. HEENT: Pupils are reactive. Conjunctivae are clear. Clear nasal mucosa. Clear oropharynx. Moist mucous membranes. NECK: Soft and supple without lymphadenopathy. No thyromegaly. LUNGS: Clear to auscultation with normal respiratory effort. HEART: Regular rate and rhythm. ABDOMEN: Soft. It is nontender. ADMIT: 09/15/2016 RM/LOC: 412 [facility] MR#: [id number] [address] [address] GWENDOLYN NAVARRO [address] [place] [address] History and Physical SEX: M AGE: 71 : 1945 EXTREMITIES: No cyanosis. No clubbing. No edema. ASSESSMENT: 1. Chest pain. 2. Diabetes mellitus type 2. 3. Hyperlipidemia. 4. Metastatic small cell lung cancer. 5. Anemia. PLAN: We will place him OPO, check cardiac enzymes, repeat EKG, and get Cardiology consulted in hopes that we can get him a stress test in the near future due to his ongoing chest pain. Forest Wisdom MD/ dno JOB #: [id number] CC: Forest Wisdom, Attending Physician Forest Wisdom, Family Physician
--- NOTE | 2016-10-14 10:38 | CO ---
ADMIT: 09/15/2016 RM/LOC: 412 [facility] MR#: [id number] [facility]#: [id number] 2620 [facility] [address] [place], [place] [address] GWENDOLYN NAVARRO Ghazal [address] [place] [address] Consultation SEX: M AGE: 71 : 1945 DATE OF CONSULTATION: 09/16/2016 ATTENDING PHYSICIAN: Forest Wisdom CONSULTING PHYSICIAN: Cristhian Garcia MD REASON FOR CONSULTATION: Chest pain, risk factors for coronary artery disease. HISTORY OF PRESENT ILLNESS: The patient is a pleasant 71-year-old male with no known history of coronary artery disease. He does have a history of tobacco abuse and diabetes. He unfortunately has a diagnosis of metastatic lung cancer, for which he has been undergoing chemotherapy. He also has some spinal lesions, for which he has been undergoing radiation therapy. He states he has had chest pain off and on since Monday. He was actually admitted here at [facility] through the emergency room on the with similar symptoms. He ruled out for acute myocardial infarction. He had a CTA of his chest which was normal. He had an echocardiogram which showed a preserved ejection fraction. This was thought to be due to his Neupogen shots he was getting to boost his white blood count and he was dismissed. Unfortunately, the pain recurred and it was very difficult to control his symptoms and therefore he was readmitted for evaluation. He states it was first on his right, but now has moved over to the left side of his chest. It sometimes goes into his back, it is no worse with exertion and has a sharp yet it has a tight component to it. PAST MEDICAL HISTORY: GERD; osteoarthritis; gout; metastatic lung cancer; COPD; diabetes; history of tobacco abuse, quitting in 2001. Also in past medical history, he does have a history of a blood clot. SOCIAL HISTORY: He has a history of tobacco abuse, quit in 2001, smoked 1-1/2 packs a day for 20 years. He is . His is here in the room with him today. He is retired from [employer]. He drinks about six cups of coffee a day. Does not follow special diet. Does not use any alcohol. Does not have a history of drug use or abuse. FAMILY HISTORY: Positive for diabetes and cancer. Negative for heart disease or stroke. REVIEW OF SYSTEMS: GENERAL: Denies fatigue, fever, chills, rash. He has had some night sweats. Has had weight loss of approximately 20 pounds. EYES: Denies double vision, cataracts, or glaucoma. He has blurry vision. ENT: Denies hearing loss or problems with mouth or throat. He has had nasal surgery and does occasionally have trouble with his sinuses. PULMONARY: Denies cough, sputum production, asthma, emphysema or bronchitis. Denies snoring loudly, fatigue upon awakening. He has a history of COPD, wakes more than once at night. GASTROINTESTINAL: Denies difficulty swallowing. No change in bowel habits. Denies dark or bloody stools. No history of ulcers, hiatal hernia, or ADMIT: 09/15/2016 RM/LOC: 412 [facility] MR#: [id number] [address] [place] [phone] GWENDOLYN NAVARRO [address] [place] [address] Consultation SEX: M AGE: 71 : 1945 gallbladder or liver disease. Does have a history of heartburn GENITOURINARY: Denies dysuria, hematuria, nocturia, urinary tract infection, or kidney stones. Denies history of renal insufficiency or failure. MUSCULOSKELETAL: He has arthritis and gout. Denies muscle or joint pains. ENDOCRINE: Denies history of thyroid dysfunction or diabetes. HEMATOLOGIC: Denies history of anemia, easy bruising. History of lung cancer, diagnosed in April with mets to the liver. NEUROLOGIC: Denies chronic headaches, dizziness, syncope, stroke, seizures or numbness or tingling. PSYCHIATRIC: Denies history of mental illness or feelings of depression. MEDICATIONS: He is taking at home include: 1. Dexamethasone 8 mg, day #4 and #5 of chemo. 2. Morphine 45 mg b.i.d. 3. Polyethylene glycol 17 g daily. 4. Oxycodone IR 5 mg 1-2 tabs q.4 hours p.r.n. 5. Allopurinol 300 mg p.o. daily. 6. Compazine 5 mg p.o. daily. 7. Levemir 10 units at bedtime. 8. DuoNeb 3 mL b.i.d. p.r.n. 9. Omeprazole 20 mg b.i.d. 10.Nitrostat 0.4 mg. ALLERGIES: NO KNOWN MEDICAL ALLERGIES. PHYSICAL EXAMINATION: VITAL SIGNS: Temperature 98.0, pulse 63, respirations 16, blood pressure 112/65, O2 saturation 96%. SKIN: Pale, warm and dry. EYES: Sclerae clear. No xanthelasmas. ENT: Oral mucosa is pink and moist. No jugular venous distention or carotid bruits. CHEST: Respirations are even and unlabored. Lungs are clear to auscultation. HEART: Regular rate and rhythm. Normal S1, S2. No murmurs, rubs or gallops. ABDOMEN: Soft and nontender. MUSCULOSKELETAL: Gait is normal. EXTREMITIES: Peripheral pulses palpable. No clubbing, cyanosis or edema. PSYCHIATRIC: Alert and oriented. Mood and affect are appropriate. DIAGNOSTIC DATA: EKG shows no ischemic changes. White blood count of 10.2 with red blood count 3.16, hemoglobin 9.7, hematocrit 30.6 with a platelet count of 211. Cardiac enzymes are normal. ASSESSMENT: Per Dr. Garcia: 1. Atypical chest pain. ADMIT: 09/15/2016 RM/LOC: 412 [facility] MR#: [id number] [address] [address] GWENDOLYN NAVARRO [address] [place] [address] Consultation SEX: M AGE: 71 : 1945 2. Metastatic lung cancer. 3. Diabetes. PLAN: Per Dr. Garcia. Overall, he has atypical symptoms for angina, but he does have risk factors such as diabetes and a history of tobacco abuse. I agree with a CT scan of his chest to rule out PE. If this looks okay, we will plan a Lexiscan stress test in a.m. for diagnostic and risk stratification of his symptoms. We will not repeat his echo as he had one on his last visit which showed a preserved ejection fraction. We will continue to monitor his symptoms and diagnostics and amend our plan accordingly. Thank you for allowing us to participate in the care of this patient. FRANCHESCA Moses / Cristhian Garcia MD / don JOB #: [id number] CC: Forest Wisdom, Attending Physician Forest Wisdom, Family Physician
[2016-11-11] MEDS ORDERED: MORPHINE SULFAT60 M1 PO (14:05)
[2016-11-11] MEDS ORDERED: SURFAK DPS240 MG PO (14:06)
[2016-11-11] MEDS ORDERED: LASIX DPS80 MG PO (14:06)
[2016-11-11] MEDS ORDERED: SENNA S TABLET1 EACH PO (14:07)
[2016-11-11] MEDS ORDERED: KLOR-CON M2020 ME1 PO (14:07)
== END 2016-09-16 13:15 | disposition home or self-care (01) ==
LOC: 4PCU 14:19
PROVIDERS: ADMIT Family Medicine
DX: R07.89 Other chest pain (principal); E11.9 Type 2 diabetes mellitus without complications; E78.5 Hyperlipidemia, unspecified; C34.90 Malignant neoplasm of unspecified part of unspecified bronchus or lung; D64.9 Anemia, unspecified; K21.9 Gastro-esophageal reflux disease without esophagitis; M48.00 Spinal stenosis, site unspecified; M10.9 Gout, unspecified; Z98.890 Other specified postprocedural states; Z79.899 Other long term (current) drug therapy